=== PATIENT | female | born 1990 | race Caucasian/White ===

== ENCOUNTER 2017-02-10 06:28 | Inpatient (IN) | payer BC ==
[2017-02-10] MEDS ORDERED: Sodium Chloride 0.9% 10 ML Syringe FLUSH PRN (07:21)
[2017-02-10] MEDS ORDERED: Ondansetron 4 MG/2 ML SDV IVPUSH PRN (07:21)
[2017-02-10] MEDS ORDERED: Nalbuphine 20 MG/1 ML Amp IVPUSH PRN (07:21)
--- NOTE | 2017-02-10 08:26 | HP ---
DATE OF ADMISSION: 02/10/2017 ADMISSION DIAGNOSIS: Thirty-nine and 5/7th week intrauterine , elective induction of labor. HISTORY OF PRESENT ILLNESS: The patient is a 26-year-old, 2, para 0-0-1-0 white female, who is admitted for elective induction of labor. The patient was last seen on 02/03/2017 at which time, her cervix was 2 cm dilated and 90% effaced, soft, mid position, and minus 2 station. Discussion was held with her about possibility of induction of labor because of distance from the hospital. The patient lives in [place], [place]. The procedure, risks, benefits, alternatives of care including natural onset of labor are all discussed in detail with the patient. She appears to understand, wishes to proceed. 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 Her last menstrual period started on 05/08/2016, was somewhat approximate. Her YANETH was set at 02/12/2017 by her last menstrual period and supported by ultrasounds done on 06/23/2016, 07/28/2016, and 09/30/2016. The patient has had 1 previous which ended in a miscarriage on 03/05/2016. The patient had a normal menarche at approximately age 10. Cycles every month. She was not using any control at the time of conception. She denies any sexually transmitted diseases or abnormal Pap smears. Her course started in July of 2016 at 11 and 4/7th weeks' gestational age. She had regular care throughout the . Her fundal height growth was appropriate. Her weight increased to 145 pounds prenatally to 178 pounds at term for a 233-pound weight gain. The baby has been active and she has had no significant problems. Her course was significant for the patient declining genetic testing. Had a slightly decreased platelet count which on last evaluation was 167,000. The patient failed her 1- hour glucose tolerance test but passed the 3-hour glucose tolerance test. Her group B strep screen was negative. She plans to breastfeed. Her last platelet count was 166,000 on 12/17/2016. Laboratory testing in shows her blood to be A positive with a negative antibody screen. First labs showed hemoglobin 14.3, MCV of 90.2, platelets of 202,000. She is rubella immune. RPR is nonreactive. Urine culture was unremarkable. Hepatitis B and HIV assays were both negative. Chlamydia and gonorrhea assays both negative. Her second trimester lab testing showed a hemoglobin of 12.7. Platelets were 169,000. One-hour GTT was high at 180. Her fasting blood sugar was 77. One-hour blood sugar with her 3-hour GTT was 136; 2-hour was 116 mg/dL; and 3-hour was 112 mg/dL. A repeat platelet count on 01/14/2017 was 167,000. Her hemoglobin was 12.4. Group B strep screen was negative. ALLERGIES: None. CURRENT MEDICATIONS: vitamins 1 daily. PAST MEDICAL HISTORY: 1. Miscarriage, February 2016. 2. Abnormal Pap smear with dysplasia diagnosed resulting in a loop electrosurgical excision procedure of the cervix in 2010. FAMILY HISTORY: Mother is alive and well at age 60. Father is alive with hypertension. Two older sisters alive and well. One sister does have polycystic ovarian syndrome. Maternal grandmother with stroke and Alzheimer's. Maternal grandfather with skin cancer. Paternal grandmother secondary to an RI. Paternal grandfather secondary to liver cancer. No bleeding, clotting, anesthesia, or problems noted in the family. SOCIAL HISTORY: The patient is . 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 She lives in [facility]. Her name is John Jimenez. The patient does not use any significant amounts of alcohol, drugs, or tobacco. REVIEW OF SYSTEMS: SKIN - Negative. CARDIOVASCULAR - No exercise intolerance or chest pain noted. LUNGS/RESPIRATORY - No wheezing, asthma, or infectious symptoms. BREAST - Changes associated with . The patient does plan to nurse. GASTROINTESTINAL - No concerns. GENITOURINARY - Changes associated with with normal fundal height growth. Genital exam showed cervix on last evaluation to be 2 cm dilated, 90% effaced, soft, mid position, minus 2 station. EXTREMITIES: Show no significant edema or joint problems per the patient's history. NEUROLOGIC - Negative. PHYSICAL EXAMINATION: VITAL SIGNS: Last evaluation in clinic shows blood pressure 102/54. Weight is 182 pounds. heart rate is 132. GENERAL: The patient is a well-developed, well-nourished, pleasant female, stated age, in no acute distress. SKIN: Warm, dry, without lesions. HEENT, NECK, AND BACK: Within normal limits. LUNGS: Clear with good breath sounds in all lung fox. CARDIOVASCULAR: Shows regular rate and rhythm without murmurs. BREASTS: Not performed at this time, having been done at first visit and found to be normal. ABDOMEN: Fundal height is consistent with term at 37+ cm. Baby is in a vertex presentation. GENITOURINARY: Cervix is 2 cm dilated, 90% effaced, soft, mid position, minus 2 station. EXTREMITIES: Show no evidence of edema. NEUROLOGICAL: Normal. ASSESSMENT: 1. Term intrauterine at 39 and 5/7th weeks' gestational age - admitted for elective induction of labor with Pitocin and artificial rupture of membranes. 2. Epidural is okay in Labor and Delivery. 3. Group B strep screen is negative. 4. The patient plans to nurse. PLAN: 1. Artificial rupture of membranes if possible, Pitocin induction if presenting part is too high. 2. Epidural p.r.n. per the patient's desire. 3. Support nursing decision. 4. Anticipate normal spontaneous vaginal delivery. MMODAL /[id number]
[2017-02-10] MEDS ORDERED: Oxytocin/Lactated Ringers 10 UNIT/1,000 ML BAG IV SCH ×2 (12:15)
[2017-02-10] MEDS: Lactated Ringers 1,000 ML IV SCH ×3 (12:23→16:13)
[2017-02-10] MEDS ORDERED: Lidocaine 1% 50 ML MDV INJECT ONE (14:00)
--- NOTE | 2017-02-10 15:12 | PCM.PREANE ---
Preanesthetic Assessment - Anesthesia/Transfusion/Family Hx Anesthesia History: Prior Anesthesia Without Reaction Family History of Anesthesia Reaction: Yes (nausea) Transfusion History: No Prior Transfusion(s) - Review of Systems General: No Symptoms Pulmonary: No Symptoms Cardiovascular: No Symptoms Gastrointestinal: No symptoms Neurological: No Symptoms Other: Reports: Easy Bruising - Physical Assessment NPO Status Date: 02/10/17 NPO Status Time: 12:00 Respiratory Rate: 18 Vital Signs: Last Vital Signs Temp 37.3 C 02/10/17 07:21 Pulse 63 02/10/17 07:21 Resp 18 02/10/17 07:21 BP 125/72 02/10/17 07:21 Pulse Ox Height: 1.65 m Weight: 82.1 kg Mental Status: Alert & Oriented x3 Airway Class: Mallampati = 2 Dentition: Reports: Normal Dentition Thyro-Mental Finger Breadths: 3 Mouth Opening Finger Breadths: 3 ROM/Head Extension: Full Lungs: Clear to auscultation, Normal respiratory effort Cardiovascular: Regular Rate, Regular Rhythm, No Murmurs - Lab Values: Laboratory Last Values WBC 10.26 K/mm3 (3.98-10.04) H 02/10/17 07:34 RBC 3.87 M/mm3 (3.98-5.22) L 02/10/17 07:34 Hgb 12.8 gm/L (11.2-15.7) 02/10/17 07:34 Hct 36.8 % (34.1-44.9) 02/10/17 07:34 MCV 95.1 fl (79.4-94.8) H 02/10/17 07:34 MCH 33.1 pg (25.6-32.2) H 02/10/17 07:34 MCHC 34.8 g/dl (32.2-35.5) 02/10/17 07:34 RDW Std Deviation 43.0 fL (36.4-46.3) 02/10/17 07:34 Plt Count 179 K/mm3 (182-369) L 02/10/17 07:34 MPV 9.6 fl (9.4-12.3) 02/10/17 07:34 Neut % (Auto) 75.0 % (34.0-71.1) H 02/10/17 07:34 Lymph % (Auto) 16.5 % (19.3-51.7) L 02/10/17 07:34 [place] % (Auto) 7.0 % (4.7-12.5) 02/10/17 07:34 Eos % (Auto) 0.9 (0.7-5.8) 02/10/17 07:34 Baso % (Auto) 0.2 % (0.1-1.2) 02/10/17 07:34 Neut # (Auto) 7.70 K/mm3 (1.56-6.13) H 02/10/17 07:34 Lymph # (Auto) 1.69 K/mm3 (1.18-3.74) 02/10/17 07:34 [place] # (Auto) 0.72 K/mm3 (0.24-0.36) H 02/10/17 07:34 Eos # (Auto) 0.09 K/mm3 (0.04-0.36) 02/10/17 07:34 Baso # (Auto) 0.02 K/mm3 (0.01-0.08) 02/10/17 07:34 Manual Slide Review Normal smear 02/10/17 07:34 - Allergies Allergies/Adverse Reactions: Allergies Allergy/AdvReac Type Severity Reaction Status Date / Time No Known Allergies Allergy Verified 02/10/17 08:49 - Acknowledgements Anesthesia Type Planned: Epidural Pt an Appropriate Candidate for the Planned Anesthesia: Yes Alternatives and Risks of Anesthesia Discussed w Pt/Guardian: Yes Pt/Guardian Understands and Agrees with Anesthesia Plan: Yes 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) - Past Surgical History HEENT Surgical History: Reports: Oral Surgery - SUBSTANCE USE Smoking Status *Q: Never Smoker Second Hand Smoke Exposure: No Days Per Week of Alcohol Use: 0 Recreational Drug Use History: No - HOME MEDS Home Medications: Home Meds PNV95/Ferrous Fumarate/FA [ Vitamins Tablet] 1 tab PO DAILY 02/10/17 [ History] - CURRENT (IN HOUSE) MEDS Current Meds: Current Medications Fentanyl/Bupivacaine HCl (Fentanyl/Bupivacaine/Ns 2 Mcg-0.125% 100 Ml) 100 ml EPIDUR ASDIRECTED CRISTÓBAL Lactated Ringer's (Ringers, Lactated) 1,000 mls @ 100 mls/hr IV ASDIRECTED CRISTÓBAL Last Admin: 02/10/17 12:23 Dose: 100 mls/hr Oxytocin/Lactated Ringer's (Pitocin In Lr 10 Units/1,000 Ml) 10 unit in 1,000 mls @ 12 mls/hr IV TITRATE CRISTÓBAL; 2 MUNITS/MIN PRN Reason: Protocol Last Titration: 02/10/17 13:45 Dose: 8 munits/min, 48 mls/hr Oxytocin/Lactated Ringer's (Pitocin In Lr 10 Units/1,000 Ml) 10 unit in 1,000 mls @ 500 mls/hr IV ASDIRECTED CRISTÓBAL PRN Reason: Protocol Nalbuphine HCl (Nubain) 10 mg IVPUSH Q2H PRN PRN Reason: Pain (moderate 4-6) Ondansetron HCl (Zofran) 4 mg IVPUSH Q4H PRN PRN Reason: Nausea/Vomiting Sodium Chloride (Saline Flush) 10 ml FLUSH ASDIRECTED PRN PRN Reason: Keep Vein Open Discontinued Medications Lidocaine HCl (Xylocaine 1%) 10 ml INJECT ONETIME ONE Stop: 02/10/17 14:01
[2017-02-10] MEDS ORDERED: Bupivacaine/fentaNYL/NS 100 ML Bag EPIDUR SCH (15:15)
[2017-02-10] MEDS ORDERED: Bupivacaine 0.25% 10 ML SDV ONE (22:22)
--- NOTE | 2017-02-10 22:26 | PCM.SN ---
- Free Text/Narrative Note: Valente was admitted on the morning of 02/10/2017 for elective induction of labor. She is 39-5/7 weeks gestational age. She is a 2 para is 1011 after delivery of a viable, ford, female infant at 2201 hrs. Baby delivered in a right occiput anterior position, weighed 3340 g (7 pounds 5.8 ounces) and had Apgars of 8 and 9 Patient had a first vaginal laceration near the introitus. This was repaired with 3-0 Monocryl with a short 3 stitch running suture. Patient is epidural for labor and analgesia and same was used for repair of laceration. The placenta delivered spontaneously in a Susy presentation at 2213 hrs. It appeared intact and complete. The umbilical cord had 3 vessels. Assessment blood loss was 100 mL. Patient plans to nurse. Condition: Good. The baby's name is Ada.
[2017-02-10] MEDS ORDERED: Witch Hazel Medicated Pads 100/Jar TOP PRN (23:31)
[2017-02-10] MEDS ORDERED: Benzocaine/Menthol 20%-0.5% Spray 56 GM Canister TOP PRN (23:31)
[2017-02-10] MEDS ORDERED: Lanolin 100% Cream 7 GM Tube TOP PRN (23:31)
[2017-02-10] MEDS ORDERED: Acetaminophen 325 MG Tab PO PRN (23:31)
[2017-02-11] MEDS: Ibuprofen 600 MG Tab PO PRN ×3 (00:14→12:43)
[2017-02-11] MEDS: Docusate Sodium 100 MG Cap PO PRN ×2 (00:15→07:28)
--- NOTE | 2017-02-11 13:31 | PCM48HPAN ---
Post Anesthesia Note - EVALUATION WITHIN 48HRS OF ANESTHETIC Vital Signs in Normal Range: Yes Patient Participated in Evaluation: Yes Respiratory Function Stable: Yes Airway Patent: Yes Cardiovascular Function Stable: Yes Hydration Status Stable: Yes Pain Control Satisfactory: Yes Nausea and Vomiting Control Satisfactory: Yes Mental Status Recovered: Yes
[2017-02-11] MEDS: Prenatal Multivitamin with Calcium/Folic Acid/Iron Tab PO SCH (13:40)
[2017-02-12] MEDS: Docusate Sodium 100 MG Cap PO PRN (07:06)
[2017-02-12] MEDS: Ibuprofen 600 MG Tab PO PRN (07:06)
--- NOTE | 2017-02-12 09:01 | PCM.DCSUM1 ---
Discharge Summary - Hospital Course Free Text/Narrative:: Valente was admitted on the morning of 02/10/2017 for elective induction of labor. She is 39-5/7 weeks gestational age. She is a 2 para is 1011 after delivery of a viable, ford, female infant at 2201 hrs. Baby delivered in a right occiput anterior position, weighed 3340 g (7 pounds 5.8 ounces) and had Apgars of 8 and 9 Patient had a first vaginal laceration near the introitus. This was repaired with 3-0 Monocryl with a short 3 stitch running suture. Patient is epidural for labor and analgesia and same was used for repair of laceration. The placenta delivered spontaneously in a Susy presentation at 2213 hrs. It appeared intact and complete. The umbilical cord had 3 vessels. Assessment blood loss was 100 mL. Patient plans to nurse. Condition: Good. The baby's name is Roz Loera. patient has done wonderfully. She is nursing without concerns. She has minimal lochia, is ambulating well and is voiding without concern. She is desiring discharge. CBC is within normal limits for the period. - Discharge Data Discharge Date: 02/12/17 Discharge Disposition: Home, Self-Care 01 Condition: Good - Patient Instructions Diet: Regular Diet as Tolerated (Nursing diet was increased calcium and calories as directed.) Activity: As Tolerated (No intercourse or tampons until bleeding resolves.) Driving: May Drive Today Showering/Bathing: May Shower (May take a bath) - Discharge Plan Home Medications: Home Meds PNV95/Ferrous Fumarate/FA [ Vitamins Tablet] 1 tab PO DAILY 02/10/17 [ History] Ibuprofen [IJD: Ibuprofen] 600 mg PO Q4H PRN #30 tablet 02/12/17 [Rx] Referrals: Etienne Lawson MD [Primary Care Provider] - [facility] - Discharge Summary/Plan Comment DC Time >30 min.: No Discharge Summary/Plan Comment: Discharge instructions: 1. Discharge home 2. Regular, high fiber, nursing diet with increased calcium and calories as directed 3. Precautions given concern increased pain, bleeding, temperature, signs/ symptoms of DVT/PE new para 4. Medications per home medication was printed, discussed with and given to the patient 5. Return to clinic-Dr. Lawson-6 weeks-[facility]-Shari. Diagnosis: 39 week intrauterine, delivered Condition: Good - Patient Data Vitals - Most Recent: Last Vital Signs Temp 36.4 C 02/12/17 04:21 Pulse 68 02/12/17 04:21 Resp 14 02/12/17 04:21 BP 119/63 02/12/17 04:21 Pulse Ox 99 02/12/17 04:21 Weight - Most Recent: 82.1 kg I&O - Last 24 hours: Intake & Output 02/11/17 02/12/17 02/12/17 22:59 06:59 14:59 Intake Total 0 Balance 0 Lab Results - Last 24 hrs: Laboratory Results - last 24 hr 02/11/17 Range/Units 22:45 WBC 12.78 H (3.98-10.04) K/mm3 RBC 3.31 L (3.98-5.22) M/mm3 Hgb 10.8 L (11.2-15.7) gm/L Hct 32.0 L (34.1-44.9) % MCV 96.7 H (79.4-94.8) fl MCH 32.6 H (25.6-32.2) pg MCHC 33.8 (32.2-35.5) g/dl RDW Std Deviation 43.0 (36.4-46.3) fL Plt Count 149 L (182-369) K/mm3 MPV 9.1 L (9.4-12.3) fl Med Orders - Current: Current Medications Acetaminophen (Tylenol) 650 mg PO Q4H PRN PRN Reason: mild pain or fever Benzocaine/Menthol (Dermoplast Pain Relief [place]) 0 gm TOP ASDIRECTED PRN PRN Reason: Perineal Comfort Measure Docusate Sodium (Colace) 100 mg PO BID PRN PRN Reason: Constipation Last Admin: 02/12/17 07:06 Dose: 100 mg Emollient Ointment (Lansinoh Hpa) 0 gm TOP ASDIRECTED PRN PRN Reason: Sore Nipples Last Admin: 02/11/17 00:15 Dose: 1 tube Ibuprofen (Motrin) 600 mg PO Q4H PRN PRN Reason: Mild pain or fever Last Admin: 02/12/17 07:06 Dose: 600 mg Prenat Multivit/Sports Equipment Racker/Iron/Folic Ac ( Plus Iron) 1 each PO DAILY CRISTÓBAL Last Admin: 02/11/17 13:40 Dose: Not Given Eugenio Gardiner (Tucks) 1 pad TOP ASDIRECTED PRN PRN Reason: Hemorrhoid pain Last Admin: 02/11/17 00:15 Dose: 1 box Discontinued Medications Bupivacaine HCl (Sensorcaine-Mpf 0.25%) 10 ml .ROUTE .STK-MED ONE Stop: 02/10/17 22:23 Fentanyl/Bupivacaine HCl (Fentanyl/Bupivacaine/Ns 2 Mcg-0.125% 100 Ml) 100 ml EPIDUR ASDIRECTED CRISTÓBAL Last Admin: 02/10/17 15:46 Dose: 100 ml Lactated Ringer's (Ringers, Lactated) 1,000 mls @ 100 mls/hr IV ASDIRECTED CRISTÓBAL Last Admin: 02/10/17 16:13 Dose: 999 mls/hr Oxytocin/Lactated Ringer's (Pitocin In Lr 10 Units/1,000 Ml) 10 unit in 1,000 mls @ 12 mls/hr IV TITRATE CRISTÓBAL; 2 MUNITS/MIN PRN Reason: Protocol Last Titration: 02/10/17 13:45 Dose: 8 munits/min, 48 mls/hr Oxytocin/Lactated Ringer's (Pitocin In Lr 10 Units/1,000 Ml) 10 unit in 1,000 mls @ 500 mls/hr IV ASDIRECTED CRISTÓBAL PRN Reason: Protocol Lidocaine HCl (Xylocaine 1%) 10 ml INJECT ONETIME ONE Stop: 02/10/17 14:01 Last Admin: 02/11/17 04:24 Dose: Not Given Nalbuphine HCl (Nubain) 10 mg IVPUSH Q2H PRN PRN Reason: Pain (moderate 4-6) Ondansetron HCl (Zofran) 4 mg IVPUSH Q4H PRN PRN Reason: Nausea/Vomiting Sodium Chloride (Saline Flush) 10 ml FLUSH ASDIRECTED PRN PRN Reason: Keep Vein Open *Q Meaningful Use (DIS) - VTE *Q VTE Criteria *Q: - Stroke *Q Stroke Criteria *Q: - AMI *Q AMI Criteria *Q:
[2017-02-12 13:48] VITALS: BP 123/74
[2017-02-12] MEDS: Prenatal Multivitamin with Calcium/Folic Acid/Iron Tab PO SCH (14:42)
== END 2017-02-12 14:25 | disposition home or self-care (01) | DRG 560 ==
LOC: JD.OB 07:06 → OBSVTOIN 22:01
PROVIDERS: ADMIT Obstetrics & Gynecology; ATTEND Obstetrics & Gynecology
PROC: 10E0XZZ Delivery of Products of Conception, External Approach (ICD-10-PCS; principal; 2017-02-10)
PROC: 0HQ9XZZ Repair Perineum Skin, External Approach (ICD-10-PCS; 2017-02-10)
PROC: 3E0R3CZ (ICD-10-PCS; 2017-02-10)
DX: O70.0 First degree perineal laceration during delivery (principal); Z3A.39 39 weeks gestation of pregnancy; Z37.0 Single live birth
CPT/HCPCS: 01967; 36415; 85025; 85027; A9270-GY; J2590; J7120